=== PATIENT | female | born 1985 | race Caucasian/White ===

== ENCOUNTER 2017-10-22 03:43 | Emergency (ER) | payer OTHER ==
[~2017-10-22] VITALS: Ht 157.5 cm; Wt 77.1 kg
--- NOTE | 2017-10-22 03:57 | ED GI/GU/ABDOMINAL COMPLAINT ---
History of Present Illness General Chief Complaint: Abdominal Pain/Flank Pain Stated Complaint: PT C/O ABD PAIN Source: patient Exam Limitations: no limitations Vital Signs & Intake/Output Vital Signs & Intake/Output Vital Signs Date Time Temp Pulse Resp B/P B/P Pulse O2 O2 Flow FiO2 Mean Ox Delivery Rate 10/22 0558 98.0 85 20 116/87 99 Room Air 10/22 0358 97.8 99 18 109/68 98 Room Air Allergies Coded Allergies: No Known Drug Allergies (NKDA 10/22/17) Reconcile Medications No Known Home Medications Triage Nurses Notes Reviewed? yes ? n Is pt currently ? No Duration: day(s):, waxing and waning Timing: recent history Quality/Severity: cramping Location: lower abd Radiation: no radiation Activities at Onset: none Prior Abdominal Problems: none Modifying Factors: Worsens With: palpation. Associated Symptoms: abdominal pain HPI: 32 yo woman in prior good health presents with lower abdominal discomfort for the past 4 days. She notes that the pain, "feels like I pulled something.... muscles below my belly button." She has no nausea, vomiting, dysuria, vaginal discharge. She notes mild diarrhea. She is otherwise well. Past History Travel History Traveled to [place] past 21 day No Medical History Any Pertinent Medical History? none Surgical History Surgical History: none Family History Hx Contributory? No Review of Systems Review of Systems Constitutional: Reports: no symptoms. EENTM: Reports: no symptoms. Respiratory: Reports: no symptoms. Cardiovascular: Reports: no symptoms. GI: Reports: no symptoms. Genitourinary: Reports: no symptoms. Musculoskeletal: Reports: no symptoms. Skin: Reports: no symptoms. Neurological/Psychological: Reports: no symptoms. Hematologic/Endocrine: Reports: no symptoms. Immunologic/Allergic: Reports: no symptoms. All Other Systems: Reviewed and Negative Physical Exam Physical Exam General Appearance: well developed/nourished, mild distress Head: atraumatic, normal appearance Eyes: Bilateral: normal appearance. Ears, Nose, Throat, Mouth: hearing grossly normal, moist mucous membrane Neck: normal inspection, supple, full range of motion Respiratory: normal breath sounds, chest non-tender, no respiratory distress, quiet respiration, lungs clear Cardiovascular: regular rate/rhythm Gastrointestinal: normal bowel sounds, soft, diffuse lower abdominal tenderness and rlq tenderness to palpation. no rebound. no guarding. Back: normal inspection Extremities: normal range of motion Neurologic/Psych: no motor/sensory deficits, awake, alert, oriented x 3 Skin: intact, normal color, warm/dry Core Measures ACS in differential dx? No Sepsis Present: No Sepsis Focused Exam Completed? No Progress Differential Diagnosis: UTI/pyelo, appy vs other. Plan of Care: Orders Procedure Date/time Status URINALYSIS 10/22 402 Complete LIPASE 10/22 402 Complete HEPATIC FUNCTION PANEL 10/22 402 Complete HUMAN BETA HCG SCREEN 10/22 402 Complete CBC WITHOUT DIFFERENTIAL 10/22 402 Complete BASIC METABOLIC PANEL 10/22 402 Complete AMYLASE 10/22 402 Complete Laboratory Tests 10/22/177: Anion Gap 19 H, Estimated GFR > 60, BUN/Creatinine Ratio 12.9, Glucose 132 H, Calcium 9.5, Total Bilirubin 0.4, Direct Bilirubin 0.4, AST 35, ALT 41, Alkaline Phosphatase 78, Total Protein 8.1, Albumin 4.9, Amylase 86, Lipase 90, Total Beta HCG NEGATIVE, CBC w Diff NO MAN DIFF REQ, RBC 4.41, MCV 85.6, MCH 28.9, MCHC 33.8, RDW 13.6, MPV 8.2, Gran % 66.4, Lymphocytes % 28.7, Monocytes % 3.8, Eosinophils % 0.6, Basophils % 0.5, Absolute Granulocytes 6.1, Absolute Lymphocytes 2.6, Absolute Monocytes 0.4, Absolute Eosinophils 0.1, Absolute Basophils 0 10/22/17 0410: Urine Color YEL, Urine Clarity CLEAR, Urine pH 6.0, Ur Specific [place] >= 1.030 , Urine Protein NEG, Urine Ketones TRACE H, Urine Nitrite NEG, Urine Bilirubin NEG, Urine Urobilinogen 0.2, Ur Leukocyte Esterase NEG, Ur Microscopic EXAM NOT REQUIRED, Urine Hemoglobin NEG, Urine Glucose NEG Diagnostic Imaging: Viewed by Me: Radiology Read. Discussed w/RAD: Radiology Read. Radiology Impression: PATIENT: NANCY CAICEDO PRESENT AGE: 32 PATIENT ACCOUNT NO: [id number] : 87 LOCATION: [facility] ORDERING PHYSICIAN: Chay Carrero MD SERVICE DATE: 10/22/17 EXAM TYPE: CAT - CT ABD & PELVIS W/O IV CONTRAS EXAMINATION: CT ABDOMEN AND PELVIS WITHOUT CONTRAST CLINICAL INFORMATION: Right lower quadrant and suprapubic tenderness COMPARISON: None TECHNIQUE: Multidetector volumetric imaging was performed from the superior aspect of the liver through the pubic symphysis. Sagittal and coronal reformatted images were obtained on the technologist's workstation. DLP: 708.23 mGy-cm FINDINGS: LUNG BASES: The visualized lung bases are unremarkable. LIVER, GALLBLADDER, AND BILIARY TREE: The dome of the liver is not fully included on this exam. Most of the liver demonstrates hypoattenuation suspicious for steatosis, with some regions of sparing. No biliary ductal dilatation is present. The gallbladder is unremarkable with no evidence of radiopaque gallstones, gallbladder wall thickening, or obvious pericholecystic inflammatory changes. PANCREAS: Unremarkable. SPLEEN: Unremarkable. ADRENAL GLANDS: Unremarkable. 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 No hydronephrosis bilaterally. No definite ureteral calculus; calcifications in the right pelvis in the vicinity of the ureterovesicular junction are favored to reflect phleboliths. BLADDER: Unremarkable. GASTROINTESTINAL TRACT: The small and large bowel are unremarkable. The appendix is suspected to be collapsed. No free fluid or free air is seen. ABDOMINAL WALL: No significant hernia is appreciated. LYMPH NODES: Normal. VASCULAR: Unremarkable. PELVIC VISCERA: An IUD is noted in the uterus. OSSEOUS STRUCTURES: Unremarkable. IMPRESSION: 1. No hydronephrosis. Tiny calcifications in the lower right pelvis are favored to reflect phleboliths and less likely distal ureterolithiasis. 2. Hepatic steatosis. DICTATED BY: Jeremias Orona MD DATE/TIME DICTATED:10/22/17538 SENIOR WEALTH ADVISOR:JUVE DATE/ TIME TRANSCRIBED:10/22/17538 CONFIDENTIAL, DO NOT COPY WITHOUT APPROPRIATE AUTHORIZATION. <Electronically signed in Other Vendor System> SIGNED BY: Jeremias Orona MD 10/22/17 0552 Initial ED EKG: none Departure Departure Disposition: HOME OR SELF CARE Condition: Stable Clinical Impression Primary Impression: Abdominal pain Referrals: Patient Has No Primary Care Dr (PCP/Family) Departure Forms: Customer Survey General Discharge Information Prescriptions: Current Visit Scripts No Known Home Medications Comments 10/22/17, 6:04am... pt with benign labs, negative ct scan... feeling better.. pt safe for discharge... close follow up advised.
[2017-10-22 04:28] LABS: ABSOLUTE BASOPHIL COUNT 0 /CUMM (0.0-0.2); ABSOLUTE EOSINOPHIL COUNT 0.1 /CUMM (0.0-0.7); ABSOLUTE GRANULOCYTE CT 6.1 /CUMM (1.4-6.5); ABSOLUTE LYMPH COUNT 2.6 /CUMM (1.2-3.4); ABSOLUTE MONOCYTE COUNT 0.4 /CUMM (0.10-0.60); BASOPHIL % 0.5 % (0.0-2.0); EOSINOPHIL % 0.6 % (0-5); GRANULOCYTE % 66.4 % (42.2-75.2); HEMATOCRIT 37.8 % (37-47); MEAN CORPUSCULAR HGB 28.9 PG (27.0-31.0); MEAN CORPUSCULAR HGB CONC 33.8 G/DL (33.0-37.0); MEAN CORPUSCULAR VOLUME 85.6 FL (81.0-99.0); MEAN PLATELET VOLUME 8.2 FL (7.4-10.4); PLATELET COUNT 297 /CUMM (130-400); RBC DISTRIBUTION WIDTH 13.6 % (11.5-14.5); RED BLOOD CELL CT 4.41 /CUMM (4.20-5.40); WHITE BLOOD CELL COUNT 9.2 /CUMM (4.8-10.8)
--- NOTE | 2017-10-22 05:52 | CT SCAN REPORT ---
EXAMINATION: CT ABDOMEN AND PELVIS WITHOUT CONTRAST CLINICAL INFORMATION: Right lower quadrant and suprapubic tenderness COMPARISON: None TECHNIQUE: Multidetector volumetric imaging was performed from the superior aspect of the liver through the pubic symphysis. Sagittal and coronal reformatted images were obtained on the technologist's workstation. DLP: 708.23 mGy-cm FINDINGS: LUNG BASES: The visualized lung bases are unremarkable. LIVER, GALLBLADDER, AND BILIARY TREE: The dome of the liver is not fully included on this exam. Most of the liver demonstrates hypoattenuation suspicious for steatosis, with some regions of sparing. No biliary ductal dilatation is present. The gallbladder is unremarkable with no evidence of radiopaque gallstones, gallbladder wall thickening, or obvious pericholecystic inflammatory changes. PANCREAS: Unremarkable. SPLEEN: Unremarkable. ADRENAL GLANDS: Unremarkable. 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 No hydronephrosis bilaterally. No definite ureteral calculus; calcifications in the right pelvis in the vicinity of the ureterovesicular junction are favored to reflect phleboliths. BLADDER: Unremarkable. GASTROINTESTINAL TRACT: The small and large bowel are unremarkable. The appendix is suspected to be collapsed. No free fluid or free air is seen. ABDOMINAL WALL: No significant hernia is appreciated. LYMPH NODES: Normal. VASCULAR: Unremarkable. PELVIC VISCERA: An IUD is noted in the uterus. OSSEOUS STRUCTURES: Unremarkable. IMPRESSION: 1. No hydronephrosis. Tiny calcifications in the lower right pelvis are favored to reflect phleboliths and less likely distal ureterolithiasis. 2. Hepatic steatosis.
[2017-10-22 05:58] VITALS: BP 116/87
== END 2017-10-22 06:04 ==
LOC: ERH 03:43
PROVIDERS: Pediatrics
DX: R10.30 Lower abdominal pain, unspecified (principal)
CPT/HCPCS: 74176; 81003; J1885